=== PATIENT | female | born 1960 | race Caucasian/White ===

== ENCOUNTER → 2020-10-11 09:18 | Outpatient (BNVA) | payer BC, SELFPAY | PROVIDERS: PCP Internal Medicine; Visit Provider Obstetrics & Gynecology ==

== ENCOUNTER 2021-02-09 11:38 | Outpatient (REF) | payer BC, SELFPAY ==
--- NOTE | ~2021-02-09 | MM_ITS ---
EXAMINATION: MM SCREENING DIGITAL BREAST TOMOSYNTHESIS, BILATERAL CLINICAL INFORMATION: Screening. Asymptomatic. The lifetime risk of breast cancer based on the Tyrer-Cuzick Model is 8%. COMPARISON: Mammography: 11/26/2019, 08/16/2018, 08/09/2017 TECHNIQUE: Digital breast tomosynthesis is performed in both the craniocaudal and mediolateral oblique views along with computer-aided detection (CAD). Synthesized 2D images are generated from the tomosynthesis. FINDINGS: There are scattered areas of fibroglandular density (ACR BI-RADS breast composition Category b). There are no significant masses, abnormal calcifications, or other abnormalities. Parenchymal pattern is similar to prior exams. The axilla and skin contours are unremarkable. No significant changes. MM/MM tomosynthesis screening BI IMPRESSION: No mammographic evidence of malignancy. ASSESSMENT: BI-RADS 1: Negative RECOMMENDATION: Routine annual mammography screening. This patient's information was entered into a reminder system with a target due date for their next mammogram.
== END 2021-02-09 11:39 | disposition home or self-care (01) ==
LOC: HO.MAMMO 11:38
PROVIDERS: Visit Provider Internal Medicine
DX: Z12.31 Encounter for screening mammogram for malignant neoplasm of breast (principal)
CPT/HCPCS: 77063; 77067

== ENCOUNTER 2021-02-14 08:57 | Day surgery (SDC) | payer BC, SELFPAY ==
[2021-02-10 11:56] VITALS: BMI 23.8
--- NOTE | 2021-02-11 09:35 | P.CONAN_ITS ---
Documented by User: Esha Melendez NP 02/11/21 09:36 HPI - Anesthesia Eval Consult details Narrative: 61yo F for Colonoscopy PMFSH Active Problems Active Problems: All Active Problems (Updated 02/10/21 @ 11:55 by Awilda Tony RN) Well woman exam (Acute) Past Medical History Medical History Anxiety COVID-19 vaccine series completed Glaucoma Hypertension Family History Family History Father Lung cancer Mother Skin cancer Surgical History Surgical History H/O colonoscopy H/O shoulder surgery Hx of section Hx of dilation and curettage Social History Social History Patient Tobacco Use Status: Former Tobacco user Quit Date: 2010 Tobacco use type: Cigarette Use of substances other than those prescribed or required for medical reasons: Yes Substance Use Type Other:: uses a few times/week Have you been hit, kicked, punched, or otherwise hurt by someone within the past year? If so, by whom?: No Are you DNR?: No Advance Directives Information Provided: Yes (as above noted) Advance Directives on File: No Recently lost weight without trying: No Eating poorly because of decreased appetite: No Nutrition Risks: No Nutritional Risk Meds Allergies Allergy/AdvReac Type Severity Reaction Status Date / Time No Known Allergies Allergy Verified 10/11/20 09:46 [No Known Allergies*] Home Medications Medication Instructions Recorded Confirmed Last Taken Type amlodipine 5 mg tablet 5 mg PO DAILY 10/11/20 02/10/21 Unknown History lorazepam 1 mg tablet 1 mg PO BEDTIME PRN 10/11/20 02/10/21 Unknown History valsartan 80 mg tablet 240 mg PO DAILY 10/11/20 02/10/21 Unknown History Exam Exam Date and Time: February 11, 202135 Height,Weight and Vital Signs: Height 5 ft 4.5 in Weight 63.957 kg Assessment and Plan Assessment Anesthesia Assessment: Chart Reviewed Documented by User: Kim Ritter MD 02/14/21 09:27 [facility] Past Medical History Medical History Anxiety COVID-19 vaccine series completed Glaucoma Hypertension Family History Family History Father Lung cancer Mother Skin cancer Family history of problems with anesthesia: No Surgical History Surgical History H/O colonoscopy H/O shoulder surgery Hx of section Hx of dilation and curettage History of Problems with Anesthesia: No Social History Social History Patient Tobacco Use Status: Former Tobacco user Quit Date: 2010 Tobacco use type: Cigarette Use of substances other than those prescribed or required for medical reasons: Yes Substance Use Type Other:: uses a few times/week Have you been hit, kicked, punched, or otherwise hurt by someone within the past year? If so, by whom?: No Are you DNR?: No Advance Directives Information Provided: Yes (as above noted) Advance Directives on File: No Recently lost weight without trying: No Eating poorly because of decreased appetite: No Nutrition Risks: No Nutritional Risk Meds Allergies Allergy/AdvReac Type Severity Reaction Status Date / Time No Known Allergies Allergy Verified 10/11/20 09:46 [No Known Allergies*] Home Medications Medication Instructions Recorded Confirmed Last Taken Type amlodipine 5 mg tablet 5 mg PO DAILY 10/11/20 02/10/21 Unknown History lorazepam 1 mg tablet 1 mg PO BEDTIME PRN 10/11/20 02/10/21 Unknown History valsartan 80 mg tablet 240 mg PO DAILY 10/11/20 02/10/21 Unknown History Exam Airway Mallampati Class: II TM Dist: >3cm Assessment and Plan Assessment Anesthesia Assessment: Anesthesia Plan Discussed Final Anesthetic Review Family History of Problems with Anesthesia: No History of Problems with Anesthesia: No NPO: Yes ASA Class: II Final Preanesthetic Review: No Changes in Pt Med Stat, Meds/Allgs Chart Reviewed, Consent Obtained/Reviewed and Anes Risks/Benef Reviewed Patient Risk: Low Procedure Risk: Low Assessment/Block/Sedation in SS: Assess/Block/Sedation-SS Anesthetic Plan Anesthetic Plan: MAC: Disposition: Standard PACU
[2021-02-14 09:49] VITALS: BP 146/73; PULSE 70; RESP 16; TEMP 36.5; O2SAT 98
[2021-02-14] MEDS: Lactated Ringers 1,000 ML 100 ML IVCONT (09:56)
[2021-02-14 11:04] VITALS: BP 117/54; PULSE 72; RESP 16; TEMP 36.1; O2SAT 97
--- NOTE | 2021-02-14 11:07 | P.BOP_ITS ---
Brief Operative Note Date of Service: 02/14/21 Pre-op diagnosis: Screening Post-op diagnosis: other (Colon polyps) Procedure: Colonoscopy to the cecum and TI with biopsy and removal of polyps Surgeon: Eagle Perez Anesthesia: MAC Was an Chief Nurse Anesthetist used for this Procedure?: No Estimated blood loss (mL): 3.0 Pathology: other (A. Cecal polyps) Condition: stable Disposition: PACU
[2021-02-14 11:23] VITALS: BP 109/61; PULSE 62; RESP 18; O2SAT 96
--- NOTE | 2021-02-14 19:06 | OP_ITS ---
SURGEON: Eagle Perez MD INDICATIONS: The patient presents for evaluation of colorectal cancer screening. Full consent has been obtained from her for this, including risks of bleeding and perforation. PREOPERATIVE DIAGNOSIS: POSTOPERATIVE DIAGNOSIS: PROCEDURE PERFORMED: Colonoscopy to cecum and terminal ileum with biopsy and removal of polyps. ESTIMATED BLOOD LOSS: COMPLICATIONS: ANESTHESIA: Monitored anesthesia care. ASSISTANTS: SPECIMENS: PREOPERATIVE DIAGNOSES: Colorectal cancer screening and personal history of tubular adenoma of the colon. POSTOPERATIVE DIAGNOSES: Colorectal cancer screening and personal history of tubular adenoma of the colon, small colon polyps, diverticulosis, and internal hemorrhoids. DESCRIPTION OF PROCEDURE: The patient was placed in the left lateral decubitus position. The digital rectal exam revealed no abnormalities. The Olympus video pediatric colonoscope was entered into the rectum and advanced easily to the cecum. Once in the cecum, I did identify cecal pouch with appendiceal orifice and a normal-appearing ileocecal valve. The terminal ileum was cannulated and appeared normal. The scope was withdrawn back in the colon. The entire cecum was well visualized. In the cecum, were 2 flat less than 5 mm polyps, which were each biopsied and completely removed with cold biopsy forceps. The remainder of the cecum appeared normal. The scope was then slowly withdrawn assessing all mucosal surfaces carefully. Preparation was excellent. I did not visualize any other polyps, colitis, nor angiodysplasia. There was a mild amount of diverticulosis in the ascending colon and a moderate amount of diverticulosis in the sigmoid and descending colon. I did not visualize any sign of colitis nor angiodysplasias. In the rectum, scope was retroflexed visualizing internal hemorrhoids, but no other pathology. The rectal mucosa appeared normal. The scope was straightened out and withdrawn from the patient. She tolerated the procedure well and was returned to the recovery area in stable condition. IMPRESSION: 1. Small colon polyps, status post biopsy and removal. 2. Diverticulosis. 3. Internal hemorrhoids. PLAN: The results of the biopsy will be checked. I would recommend a repeat colonoscopy in 5 years for further screening. She will otherwise see me on a p.r.n. basis. MD MAGED Thomas/ALYSSAL / [id number]
== END 2021-02-14 12:05 | disposition home or self-care (01) ==
PROVIDERS: PCP Internal Medicine; Visit Provider Internal Medicine
PROC: 0DJD8ZZ Inspection of Lower Intestinal Tract, Via Natural or Artificial Opening Endoscopic (ICD-10-PCS; CPT 45378; principal; 2021-02-14 10:00)
DX: Z12.11 Encounter for screening for malignant neoplasm of colon (principal); Z86.010 Personal history of colon polyps; Z83.71 Family history of colonic polyps; D12.0 Benign neoplasm of cecum; K57.30 Diverticulosis of large intestine without perforation or abscess without bleeding; K64.8 Other hemorrhoids; K59.00 Constipation, unspecified; D18.03 Hemangioma of intra-abdominal structures; I10 Essential (primary) hypertension; R79.89 Other specified abnormal findings of blood chemistry; Z87.891 Personal history of nicotine dependence
CPT/HCPCS: 45380; 88305

== ENCOUNTER 2021-11-24 11:22 | Outpatient (REF) | payer BC, SELFPAY ==
[2021-11-30 22:56] LABS: HPV mRNA E6/E7 rflx Not Detected (Not Detected)
== END 2021-11-24 11:23 | disposition home or self-care (01) ==
LOC: HO.LAB 11:22
PROVIDERS: Visit Provider Obstetrics & Gynecology
DX: Z01.419 Encounter for gynecological examination (general) (routine) without abnormal findings (principal); Z11.51 Encounter for screening for human papillomavirus (HPV)
CPT/HCPCS: 87624; 88142

== ENCOUNTER 2022-02-10 11:58 | Outpatient (REF) | payer BC, SELFPAY ==
--- NOTE | ~2022-02-10 | MM_ITS ---
EXAMINATION: MM SCREENING DIGITAL BREAST TOMOSYNTHESIS, BILATERAL CLINICAL INFORMATION: Screening. Asymptomatic. The lifetime risk of breast cancer based on the Tyrer-Cuzick Model is 8%. COMPARISON: Mammography: 02/09/2021, 11/26/2019, 08/16/2018 TECHNIQUE: Digital breast tomosynthesis is performed in both the craniocaudal and mediolateral oblique views along with computer-aided detection (CAD). Synthesized 2D images are generated from the tomosynthesis. FINDINGS: There are scattered areas of fibroglandular density (ACR BI-RADS breast composition Category b). There are no significant masses, abnormal calcifications, or other abnormalities. Parenchymal pattern is similar to prior studies. There is no developing density or architectural abnormality. The axilla and skin contours are unremarkable. No significant changes. MM/MM tomosynthesis screening BI IMPRESSION: No mammographic evidence of malignancy. ASSESSMENT: BI-RADS 1: Negative RECOMMENDATION: Routine annual mammography screening. This patient's information was entered into a reminder system with a target due date for their next mammogram.
== END 2022-02-10 11:59 | disposition home or self-care (01) ==
LOC: HO.MAMMO 11:58
PROVIDERS: PCP Internal Medicine; Visit Provider Internal Medicine
DX: Z12.31 Encounter for screening mammogram for malignant neoplasm of breast (principal)
CPT/HCPCS: 77063; 77067

== ENCOUNTER → 2022-11-27 09:59 | Outpatient (BNVA) | payer BC, SELFPAY | PROVIDERS: PCP Internal Medicine; Visit Provider Obstetrics & Gynecology ==

== ENCOUNTER 2023-02-14 10:22 | Outpatient (REF) | payer BC, SELFPAY | END 2023-02-14 10:23 | disposition home or self-care (01) | LOC: HO.MAMMO 10:22 | PROVIDERS: PCP Internal Medicine; Referring Provider Obstetrics & Gynecology; Visit Provider Internal Medicine | DX: Z12.31 Encounter for screening mammogram for malignant neoplasm of breast (principal) | CPT/HCPCS: 77063; 77067 ==

== ENCOUNTER → 2023-02-14 10:30 | Outpatient (BNV) | payer BC, SELFPAY | PROVIDERS: PCP Internal Medicine; Referring Provider Obstetrics & Gynecology; Visit Provider Radiology Diagnostic Radiology | DX: Z12.31 Encounter for screening mammogram for malignant neoplasm of breast (principal) | CPT/HCPCS: 77063; 77067 ==

== ENCOUNTER 2024-03-10 14:58 | Outpatient (REF) | payer BC, SELFPAY ==
--- NOTE | ~2024-03-10 | MM_ITS ---
EXAMINATION: MM SCREENING DIGITAL BREAST TOMOSYNTHESIS, BILATERAL CLINICAL INFORMATION: Screening. Asymptomatic. COMPARISON: Mammography: Comparison is made with available priors TECHNIQUE: Digital breast mammography with tomosynthesis is performed in both the craniocaudal and mediolateral oblique views along with computer-aided detection (CAD). FINDINGS: There are scattered areas of fibroglandular density (ACR BI-RADS breast composition Category b). There are no significant masses, abnormal calcifications, or other abnormalities. MM/MM tomosynthesis screening BI IMPRESSION: No mammographic evidence of malignancy. ASSESSMENT: BI-RADS BI-RADS 1 - Negative RECOMMENDATION: Routine annual mammography screening. 1 year F/U This examination should not preclude the clinical evaluation of a suspicious palpable abnormality. This patient's information was entered into a reminder system with a target due date for their next mammogram. Electronically signed by: Anna Jones DO 03/21/2024 04:45 PM EDT
== END 2024-03-10 14:59 | disposition home or self-care (01) ==
LOC: HO.MAMMO 14:58
PROVIDERS: PCP Internal Medicine; Visit Provider Internal Medicine
DX: Z12.31 Encounter for screening mammogram for malignant neoplasm of breast (principal)
CPT/HCPCS: 77063; 77067

== ENCOUNTER → 2024-03-10 15:15 | Outpatient (BNV) | payer BC, SELFPAY | PROVIDERS: PCP Internal Medicine; Visit Provider Internal Medicine | DX: Z12.31 Encounter for screening mammogram for malignant neoplasm of breast (principal) | CPT/HCPCS: 77063; 77067 ==

== ENCOUNTER 2025-03-30 12:52 | Outpatient (REF) | payer MEDICARE, SELFPAY ==
--- OUTSIDE RECORDS SUMMARY | 2025-03-30 16:20 | XMS_ITS | Encounter Summary ---
Author Organization [facility] Address [address] [facility] [address] [place] [address] Phone Care Team Providers Care Sample Clerk Name Role Phone Hiro Aquino MD Primary Care Provider [phone] Hiro Aquino MD Unavailable [phone] Hiro Aquino MD Unavailable [phone] Eagle Perez MD Unavailable [phone] Edmar Simms MD Unavailable [phone] Encounter Details Date Type Department Care Team (Late st Contact Info) Description 05/24/2022 Transcribe Orders [facility] Specimen Processing [address] [place] [address] Hiro Aquino MD [address] [place] [address] [email or web address] Social History Tobacco Use Types Packs/Day Years Used Date Smoking Tobacco: Former Cigarettes 1 40 1 977 - 2016 Smokeless Tobacco: Never Alcohol Use Standard Drinks/Week Comments Yes 10 (1 standard drink = 0.6 oz pure alcohol) 1-2 glasses daily, more on weekends Child or Family Care Answer Date Record ed Do you have problems with on e of the following making it difficult for you to work, study, or receive health care? No 06/07/2021 Education Answer Date Recorded Are you interested in help w ith more adult education (for example, completing high school, GED, job training, learning the Swedish language, technical skills, or developing parenting skills)? No 06/07/2021 Are you concerned about learning? Not on file 06/07/2021 Not on file 06/07/2021 Not on file 06/07/2021 Food Answer Date Recorded Within the past 6 months we worried whether our food would run out before we got money to buy more. Never True 06/07/2021 Within the past 6 months the food we bought just didn't last and we didn't have enough money to get more. Never True Paying for Meds Answer Date Recorded Do you have trouble paying for medicines? No 06/07/2021 Paying Utility Bills Answer Date Record ed Do you have trouble paying your heating or elect ricity bill? No 06/07/2021 Transportation Answer Date Recorded Has the lack of transportati on kept you from medical appointments or from getting medications? No 06/07/2021 Comments No Sex and Gender Information Value Date Recorded Sex Assigned at Not on file Legal Sex Female 10:34 PM EDT Gender Identity Not on file Sexual Orientation Not on file documented as of this encounter Plan of Treatment Upcoming Encounters Date Type Department Care Team (Late st Contact Info) Description 05/29/2025 1:00 PM EST Office Visit [facility] Internal Medicine [address] [place] [address] Hiro Aquino MD [address] [place] [address] documented as of this encounter Visit Diagnoses Not on filedocumented in this encounter Additional Health Concerns Assessment Noted Time PHQ-2 Depression Total Score: 0 06/07/19 22 11:03 AM EST documented as of this encounter Care Teams Sample Clerk Relationship Specialty Start Date End Date Hiro Aquino MD [address] [place] [address] PCP - General 03/22/17 Hiro Aquino MD [address] [place] [address] [email or web address] Historical LMR Provider 03/24/17 Hiro Aquino MD [address] [place] [address] [email or web address] Insurance Assigned Provider 09/08/23 03/14/25 Eagle Perez MD [address] [place] [address] Gastroenterology 02/20/20 Edmar Simms MD [address] [place] [address] [address] [place] [address] [email or web address] Hand Surgery 02/20/20 documented as of this encounter Additional Source Comments The information contained in this document represents components of the legal health record. It is not the complete legal health record.[facility]
--- OUTSIDE RECORDS SUMMARY | 2025-03-30 16:20 | XMS_ITS | Encounter Summary ---
Author Organization [facility] Address [address] [facility] [address] [place] [address] Phone Care Team Providers Care Frameman Name Role Phone Hiro Aqunio MD Primary Care Provider [phone] Hiro Aquino MD Unavailable [phone] Hiro Aquino MD Unavailable [phone] Eagle Perez MD Unavailable [phone] Edmar Simms MD Unavailable [phone] Reason for Visit * Reason Onset Date Comments Medication Question 03/02/2022 Encounter Details Date Type Department Care Team (Late st Contact Info) Description 03/02/2022 Telephone [facility] Internal Medicine [address] [place], [place] [id number] Hiro Aquino MD [address] [place] [address] [email or web address] Medication Question Social History Tobacco Use Types Packs/Day Years [...] high school, GED, job training, learning the [place]ic language, technical skills, or developing parenting skills)? [...] on file documented as of this encounter Progress Notes * Ariana Antonio RN - 03/07/2022 11:04 AM EDT Spoke to Yelena about below. She understands. To Dr. Aquino: Labs pended for review and signature. * Velvet Rodriguez NP - 03/02/2022 9:23 PM EDT Start Atorvastatin 20 mg daily taken in evening or at bedtime. Report any unexplained muscle pain or weakness. Recheck Lipids, AST, ALT in 2 months (fasting) * Radha Rodriguez - 03/02/2022 8:51 AM EDT Pt called to say she received a call last week from nurse that her cholesterol was high and PCP wasgoing to order meds at [facility] in [place]. Not sure name of med but thought it was ??Astatin --- medication is not at the pharmacy. Please call to advise. documented in this encounter Plan of Treatment Upcoming Encounters Date Type Department Care Team ([facility] st Contact Info) Description 05/29/2025 1:00 PM EST Office Visit [facility] Internal Medicine [address] [place] [address] Hiro Aquino MD [address] [place] [address] [email or web address] documented as of this encounter Visit Diagnoses Diagnosis Pure hypercholesterolemia documented in this encounter Additional Health Concerns Assessment Noted Time PHQ-2 Depression Total Score: 0 06/07/19 22 11:03 AM EST documented as of this encounter Care Teams Frameman Relationship Specialty Start Date End Date Hiro Aquino MD [address] [place] [address] PCP - General 03/22/17 Hiro Aquino MD [address] [place] [address] Historical LMR Provider 03/24/17 Hiro Aquino MD [address] [place] [address] Insurance Assigned Provider 09/08/23 03/14/25 Eagle Perez MD [address] [place] [address] Gastroenterology 02/20/20 Edmar Simms MD [address] [place] [address] [place] [address] [email or web address] Hand Surgery 02/20/20 documented as of this encounter Additional Source Comments The information contained in this document represents components of the legal health record. It is not the complete legal health record.[facility]
--- OUTSIDE RECORDS SUMMARY | 2025-03-30 16:20 | XMS_ITS | Data Portability ---
Author Organization [place] - [facility], [facility]- Address [address] [place] [address] Assessment Encounter Date Assessment Date Assessment LastModified by Organization Details LastModified Time 04/24/2023 04/24/2023 The clinical presentation is consistent with right hip arthritis [email or web address] Not available 04/24/2023 15:56:56 04/30/2023 04/30/2023 Decision to proceed with right primary hip replacement surgery [email or web address] Not available 04/30/2023 13:32:00 06/05/2023 06/05/2023 This patient presents for follow up 4 weeks after right hip replacement [email or web address] Not available 06/05/2023 13:40:55 Plan of Treatment Reminders Order Date Submit Date Provider Last Modified By Organization Details Last Modified Time Details Appointments None recorded. Lab None recorded. Referral physical therapist referral 2023 024 [email or web address] [employer], [address] [facility], [place], [address], 08:50:29 Procedures None recorded. Surgeries None recorded. Imaging XR, hip + pelvis, unilateral, 2 or 3 view 2023 024 [email or web address] In-Office Order, Internal Use Only DO Not Attach Compendium DO Not Attach Compendium, Do Not Delete/merge, [id number] 13:41:25 XR, hip + pelvis, unilateral, 2 or 3 view 2022 023 [email or web address] In-Office Order, Internal Use Only DO Not Attach Compendium DO Not Attach Compendium, Do Not Delete/merge, [id number] 15:57:50 Medication Orders amoxicillin 500 mg capsule 2023 024 [facility], [address] [place], [address], 4 13:41:31 Adult Low Dose Aspirin 81 mg tablet,supa yed release 2022 023 [facility], [address] [place], [address], 3 13:37:51 celecoxib 200 mg capsule 2022 023 [facility], [address] [place], [address], 3 13:37:47 acetaminoph en 500 mg tablet 2022 023 [facility], [address] [place], [address], 3 13:37:47 oxycodone 5 mg tablet 2022 023 [facility], [address] [place], [address], 3 13:37:53 sennosides 8.6 mg-docusate sodium 50 mg tablet 2022 023 [facility], [address] [place], [address], 3 13:37:49 omeprazole 20 mg capsule,del ayed release 2022 023 [facility], [address] [place], [address], 3 13:37:50 Hibiclens 4 % topical liquid 2022 023 [facility], [address] [place], [address], 13:37:51 Patient TargetsNo targets recorded. Patient Instructions Encounter Date Encounter Id Patient Instructions Last Modified By Organization Details Last Modified Time 04/24/2023 [id number] I have offered r ight hip replacement surgery. We discussed the nature of the operation and recovery process. She is aware the risks including but not limited to bleeding infection dislocation blood clots and nerve injury. Her can help her with her recovery process. We discussed inpatient versus outpatient surgery and she is a candidate for outpatient surgery. All of her questions were answered and follow-up in the office we based on her decision to proceed. [email or web address] Not available 04/24/2023 15:58:48 04/30/2023 [id number] Right primary to evgeny hip arthroplasty has been offered. We have discussed both operative and non-operative management. The usual post-op risks of total hip arthroplasty have been reviewed, including but not limited to bleeding, infection, dislocation, blood clots, sciatic nerve injury and leg length discrepancy. She demonstrates and verbalizes understanding of these risks and agreement with the plan. All of her questions have been addressed regarding the details of the surgery, the recovery process and the anticipated discharge plans. Based on assessment of risk factors, postoperative thromboprophylaxis will be accomplished with aspirin 81mg twice a day. Pre-operative notes and recommendations from the primary care physician will be reviewed when they become available. Labwork will be obtained for pre-testing and evaluated. She has no sabianist or personal objection to transfusion of blood products, and the small risk of transmission of disease from the blood has been discussed. Based on the patient's medical history, tranexamic acid may be used safely to reduce blood loss. We have reviewed the plan for spinal anesthesia and benefits of spinal as opposed to general anesthesia. The post-operative pain control regimen has been reviewed. The utility of Celebrex for pain control and reduction of heterotopic bone formation has been reviewed, and we have emphasized the importance of using a proton pump inhibitor concurrently. Other standard post-op pain control measures will likely be sufficient and safe. We will proceed with surgical intervention as scheduled. This real time, interactive virtual telehealth encounter was done by phone with the patient's verbal consent. Two patient identifiers were used and confirmed. Physical location of the patient was: home. Patient resides in: [place] Physical location of the provider: office Other participant's involvement(bilingual speech language pathologist, etc): No [email or web address] Not available 04/30/2023 13:40:33 06/05/2023 [id number] Chemical thromboprophylaxis will discontinue. Dislocation precautions will be discontinued. A dental prophylaxis antibiotic script has been given but elective dental work is discouraged until 12 weeks post-op. A physical therapy referral has been provided. She will followup in one year for another checkup. We have discussed positions to avoid to reduce the likelihood of hip instability. [email or web address] Not available 06/05/2023 13:41:32 Reason for Referral Physical Therapist Referral for History of total hip arthroplasty Referring Physician: Angel Pinto, Orthopedic Surgery, Encounter Date: 06/05/2023 Results Created Date Observation Date Name Description Value Unit Range Abnormal Flag Note LastModifiedBy Organization Detail LastModifiedTime 04/24/20 23 XR, hip + pelvi s, unila teral , 2 or 3 view No observ ation record ed. [email or web address] In-Office Order Internal Use Only DO Not Attach Compendium DO Not Attach Compendium, Do Not Delete/merge, [id number] 04/24/2023 15:57:49 06/05/19 24 XR, hip + pelvi s, unila teral , 2 or 3 view No observ ation record ed. [email or web address] In-Office Order Internal Use Only DO Not Attach Compendium DO Not Attach Compendium, Do Not Delete/merge, [id number] 06/05/2023 13:41:22 11/15/19 24 11/09/2023 XR, hip, unila teral No observ ation record ed. [email or web address] [facility] [address] [place] [address], [place], [address], 11/16/2023 07:48:18 Result Notes None recorded. Problems Name Problem SNOMED Code Status Onset Date Resolution Date Notes Provider Name and Address Organization Details Recorded Time Osteoarthri tis of right hip joint 5355306707211 07 Active 2022 Angel Pinto MD [address] [place], [place] [address], [id number], [facility] - [facility] 3 15:57:05 Notes:R HIP ~2018 Problem Notes None recorded. Medical Equipment None Reported. Allergies No known drug allergies Medications Name Sig Start Date Stop Date Status Note LastModified by Organization Details LastModified Time celecoxib 200 mg capsule TAKE ONE CAPSULE BY MOUTH EVERY DAY active Not Available Not Available No t Available amoxicillin 500 mg capsule TAKE 4 CAPSULES BY MOUTH 1 HOUR BEFORE DENTAL WORK. active Not Available Not Available No t Available budesonide 32 mcg/actuation nasal spray USE 1 SPRAY BY NASAL ROUTE DAILY. active Not Available Not Available No t Available atorvastatin 20 mg tablet TAKE 1 TABLET BY MOUTH EVERY DAY active Not Available Not Available No t Available azithromycin 250 mg tablet TAKE TWO TABLETS BY MOUTH ONE DOSE ON THE FIRST DAY, THEN TAKE ONE TABLET DAILY THEREAFTE R. active Not Available Not Available No t Available meloxicam 15 mg tablet TAKE ONE TABLET BY MOUTH EVERY DAY WITH FOOD active Not Available Not Available No t Available valsartan 80 mg tablet TAKE TWO TABLETS 160MG) BY MOUTH EVERY DAY active Not Available Not Available No t Available amlodipine 5 mg tablet TAKE 1 TABLET BY MOUTH EVERY DAY active Not Available Not Available No t Available aspirin 81 mg tablet,delayed release TAKE ONE TABLET BY MOUTH TWICE A DAY FOR 30 DAYS. active Not Available Not Available No t Available acetaminophen 500 mg tablet TAKE TWO TABLETS BY MOUTH EVERY 8 HOURS active Not Available Not Available No t Available oxycodone-acet aminophen 5 mg-325 mg tablet TAKE ONE TABLET BY MOUTH EVERY 4 TO 6 HOURS NEEDED FOR PAIN active Not Available Not Available No t Available Betasept Surgical Scrub 4 % topical liquid SHOWER THE NIGHT BEFORE & THE MORNING OF SURGERY. active Not Available Not Available No t Available erythromycin 5 mg/gram (0.5 %) eye ointment APPLY TO UPPER LIDS TO BOTH EYES THREE TIMES A DAY active Not Available Not Available No t Available omeprazole 20 mg capsule,delaye d release TAKE ONE CAPSULE BY MOUTH EVERY DAY FOR 30 DAYS. active Not Available Not Available No t Available lorazepam 1 mg tablet TAKE 1 TABLET BY MOUTH NIGHTLY AT BEDTIME NEEDED. active Not Available Not Available No t Available oxycodone 5 mg tablet TAKE 1 OR 2 TABLETS BY MOUTH EVERY 6 HOURS NEEDED FOR PAIN. active Not Available Not Available No t Available Botox 100 unit injection active Not Available Not Available No t Available valsartan 160 mg tablet TAKE 1 TABLET BY MOUTH EVERY DAY active Not Available Not Available No t Available Stimulant Laxative Plus 8.6 mg-50 mg tablet TAKE TWO TABLETS BY MOUTH EVERY DAY active Not Available Not Available No t Available Vitals Date Recorded Body height Body mass index (BMI) Body weight Provider Name and Address Organization Details Last Updated DateTime 06/05/2023 162.56 cm 25.4 kg/m2 15420.67 g nadiya cueto [facility] 06/05/2023 13:10:16 Date Recorded Body height Body mass index (BMI) Body weight Provider Name and Address Organization Details Last Updated DateTime 04/24/2023 162.56 cm 25.4 kg/m2 85949.67 g Hanane Saeed [facility] 04/24/2023 14:03:26 Date Recorded Body height Body mass index (BMI) Body weight Provider Name and Address Organization Details Last Updated DateTime 04/24/2023 162.56 cm 24.9 kg/m2 20899.89 g KHADIJAH GASTELUM [facility] 04/24/2023 13:56:57 Date Recorded Body height Body mass index (BMI) Body weight Provider Name and Address Organization Details Last Updated DateTime 04/30/2023 162.56 cm 25.4 kg/m2 23872.67 g KHADIJAH GASTELUM [facility] 04/30/2023 07:40:50 Social History Question Answer Notes LastModified by [facility] Details LastModified Time Tobacco Smoking Status Former Smoker KHADIJAH cornejo [facility] 04/24/2023 13:57:57 Which Of Your Hands Is Dominant? Right Information not available 04/24/2023 What Was The Date Of Your Most Recent Tobacco Screening? 04/30/2023 Information not available 04/30/2023 How Many Years Have You Smoked Tobacco? 30 Information not available 04/24/2023 Sex: Unknown Functional Status Question Answer Note LastModified by Organizat ion Details LastModified Time Do you use any illicit or recreational drugs? No Information not available 04/24/2023 Do you or have you ever used any other forms of tobacco or nicotine? No Information not available 04/24/2023 What is your level of alcohol consumption? Moderate Information not available 04/24/2023 Mental Status None recorded. Family History Relationship Description Onset Age of this Age Resolved Age Notes LastModified by Organization Details LastModified Time Unspecified Relation Malignant neoplastic disease Not available 04/05 13:57:06 Unspecified Relation Heart disease Not available 04/05 13:57:11 Unspecified Relation Hypertensive disorder Not available 04/05 13:57:15 Unspecified Relation Osteoarthrit is Not available 04/05 13:57:23 Medical History Condition Response Arthritis Y Gynecological HistoryNo gynecological history recorded. Obstetrics History GPAL:G 0 P 0 0 0 0 Past Encounters Encounter ID Performer Location Encounter Start Date Encounter Closed Date Diagnosis/Indication Diagnosis SNOMED-CT Code Diagnosis ICD10 Code Diagnosis IMO Codes Diagnosis Note [id number] MD JACQUELINE Rooney [address] [place] [address] 04/24/2023 13:28:08 04/24/2023 14:37:00 Osteoarthritis of right hip joint 1069920102 35960 M16.11 [id number] Angel Pinto MD [facility] [address] [place] [address] 04/30/2023 07:40:13 04/30/2023 13:41:37 Osteoarthritis of right hip joint 9493566058 71400 M16.11 [id number] [facility] [address] [place] [address] 06/05/2023 13:06:54 06/05/2023 13:40:12 History of total hip arthroplasty 3880657642 06 Z96.641 Health Concerns Section Related Observation LastModified by Organization Detai ls LastModified Time None Recorded Concern Status LastModified by Organization Details LastModified Time None Recorded Advance Directives Directive None Recorded Payers Insurance Date Sequence Insurance Name Policy Number Policy Dominguez Covered Member ID Dominguez Member ID Guarantor Name 06/05/2023 1 [facility] [id number] Yelena Ramirez [id number] Yelena Ramirez Notes Date Note Type Note Provider Name and Address Organization Details Recorded Time 04/24/2023 text/html Hip DJPReported by Patient 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 She lives outside of [facility]. She is otherwise healthy. She lives at home with her . She complains of groin pain and lateral thigh pain. She cannot walk more than neighborhood block before she has to stop. She is having difficulty with socks and shoes lifting her leg to get in and out of a car. Diagnosed with arthritis in an outlying orthopedic office. She has had a total of 3 intra-articular cortisone injections, the last of which did not help her. It was performed a little over 3 months ago. Agnel Pinto MD [address] [place], [address], [facility] 04/24/2023 15:59:00 04/30/2023 text/html Yelena Ramirez Presents in follow up today via telehealth for further discussion of right hip arthritis. She has been trying to manage symptoms conservatively but has elected to proceed with right hip replacement. Pertinent PMH includes: Pertinent social history includes: lives with her , works for [employer] MAURILIO HICKEY NP [address] [place], [address], [facility] 04/30/2023 13:41:18 06/05/2023 text/html Hip arthroplasty post-opReported by Patient 4 weeks after right hip replacement. Doing beautifully. Doing a home exercise program after home PT. Was not tolerant of most of her medications so has been off any meds for the past 2 weeks. Never took an oxycodone. Has been ambulating with weeks Angel Pinto MD [address] [place], [address], [facility] 06/05/2023 13:41:43 OBGyn Episode No OBEpisode recorded.
--- OUTSIDE RECORDS SUMMARY | 2025-03-30 16:20 | XMS_ITS | Encounter Summary ---
Author Organization Located Within [facility] Address [address] [facility] [address] [place] [address] Phone Care Team Providers Care Development Planner Name Role Phone Hiro Aquino MD Primary Care Provider [phone] Hiro Aquino MD Unavailable [phone] Hiro Aquino MD Unavailable [phone] Eagle Perez MD Unavailable [phone] Edmar Simms MD Unavailable [phone] Encounter Details Date Type Department Care Team (Late st Contact Info) Description 05/05/2024 Procedure Pass [facility], Ct Scan - [address] [address] Social History Tobacco Use Types Packs/Day Years [...] work, study, or receive health care? No 11/01/2023 Education Answer Date Recorded Are you interested in help w ith more adult education (for example, completing high school, GED, job training, learning the Azeri language, technical skills, or developing parenting skills)? No 11/01/2023 Are you concerned about learning? Not on file 11/01/2023 No 11/01/2023 Yes 11/01/2023 Food Answer Date Recorded Within the past 6 months we worried whether our food would run out before we got money to buy more. Never True 11/01/2023 Within the past 6 months the food we bought just didn't last and we didn't have enough money to get more. Never True Residential Stability Answer Date Recor ded What is your housing situation today? I have vern sing 11/01/2023 How many times have you move d in the past 12 months? Zero (I did not move) 11/01/2023 Paying for Meds Answer Date Recorded Do you have trouble paying for medicines? No 11/01/2023 Paying Utility Bills Answer Date Record ed Do you have trouble paying your heating or elect ricity bill? No 11/01/2023 Transportation Answer Date Recorded Has the lack of transportati on kept you from medical appointments or from getting medications? No 11/01/2023 Unemployment Answer Date Recorded Are you currently unemployed or working on a part-time or temporary basis, and looking for work? I choose not to answer 06/07/2022 Digital Access Answer Date Recorded No 11/01/2023 Yes 11/01/2023 Do you have reliable internet access at home? Ye s 11/01/2023 Do you have a device (e.g., phone, tablet, computer) with a working camera? Yes 11/01/2023 Intimate Partner Violence Answer Date R ecorded Denied Basic Needs Not on file 11/01/2023 In the past 12 months have y ou been in a relationship with a person who hurts, threatens, or tries to control you? No 11/01/2023 Worried food would run out Not on file 10/31 In the past 12 months have y ou been in a relationship with a person who hurts, threatens, or tries to control you? No 11/01/2023 Comments No Sex and Gender Information Value Date Recorded Sex Assigned at Not on file Legal Sex Female 10:34 PM EDT Gender Identity Not on file Sexual Orientation Not on file documented as of this encounter Plan of Treatment Upcoming Encounters Date Type Department Care Team (Late st Contact Info) Description 05/29/2025 1:00 PM EST Office Visit Oanh Fernandez [facility] Internal Medicine [address] [place] [address] Hiro Aquino MD [address] [place] [address] [email or web address] documented as of this encounter Visit Diagnoses Not on filedocumented in this encounter Additional Health Concerns Assessment Noted Time PHQ-2 Depression Total Score: 0 11/01/19 24 8:00 AM EDT documented as of this encounter Care Teams Development Planner Relationship Specialty Start Date End Date Hiro Aquino MD [address] [place] [address] [email or web address] PCP - General 03/22/17 Hiro Aquino MD [address] [place] [address] [email or web address] Historical LMR Provider 03/24/17 Hiro Aquino MD [address] [place] [address] [email or web address] Insurance Assigned Provider 09/08/23 03/14/25 Eagle Perez MD [address] [place] [address] Gastroenterology 02/20/20 Edmar Simms MD [address] [place] [address] [email or web address] Hand Surgery 02/20/20 documented as of this encounter Additional Source Comments The information contained in this document represents components of the legal health record. It is not the complete legal health record.Located Within [facility]
--- OUTSIDE RECORDS SUMMARY | 2025-03-30 16:20 | XMS_ITS | Clinical Summary ---
Author Organization [employer] Address [address] [facility] [address] [place] [address] Care Team Providers Care Pigment Pumper Name Role Phone Unavailable Primary Care Provider Unavailabl e Encounters Date Type Department Care Team Description 03/12/2025 11:15 AM EDT Immunization [facility] [address] [place] [address] Larissa Núñez RN Encounter for vaccination; Encounter for immunization from Last 3 Months Immunizations Immunization Administration Dates Next Due Influenza, High Dose Seasonal, Preservative Free 03/12/2025 Pfizer Covid-19 Vaccine 12+ 03/12/2025 Social History Tobacco Use Types Packs/Day Years Used Date Smoking Tobacco: Never Assessed Comments Unknown Sex and Gender Information Value Date Recorded Sex Assigned at Female 03/12/2025 3:04 PM EDT Legal Sex Female 3:02 PM EDT Gender Identity Female 03/12/2025 3:04 PM EDT Sexual Orientation Straight 03/12/2025 3: 04 PM EDT Plan of Treatment Health Maintenance Due Date Last Done Comments CT Colonography 1960 Colonoscopy 1960 Colorectal Cancer Screening 1960 Depression Screening 1960 FIT DNA/Cologuard 1960 FIT 1960 FOBT 1960 Lipid Panel 1960 SDOH Screening 1960 Sigmoidoscopy 1960 Alcohol/Substance Use Screening 1972 Tobacco Screening 1972 Hepatitis C Screening 12/31/1977 Pap Smear 12/31/1980 Cervical Cancer Screening 12/31/1989 HPV/Cotest 12/31/1989 Mammogram 2000 Pneumococcal Vaccine: 50+ Years (1 of 1 - PCV) 12/31/2009 Zoster Vaccines (2 of 2) 07/16/2020 05/21/2020 DTaP/Tdap/Td Vaccines (2 - Td or Tdap) 09/03/2023 09/02/2013, 05/05/2005 COVID-19 Vaccine ( season) 2025 03/12/2025, 09/26/2020, 08/27/2020 RSV Patients and Patients Aged 60 years or older (1 - 1-dose 75+ series) 12/31/2034 Influenza Vaccine Completed 03/12/2025, , 03/01/2023, Additional history exists HIB Vaccines Aged Out No longer eligi ble based on patient's age to complete this topic HPV Vaccines Aged Out No longer eligi ble based on patient's age to complete this topic Hepatitis A Vaccines Aged Out No long er eligible based on patient's age to complete this topic Hepatitis B Vaccines Aged Out No long er eligible based on patient's age to complete this topic IPV Vaccines Aged Out No longer eligi ble based on patient's age to complete this topic Meningococcal B Vaccine Aged Out No l onger eligible based on patient's age to complete this topic Meningococcal Vaccine Aged Out No adrián julius eligible based on patient's age to complete this topic RSV under 20 months Aged Out No longe r eligible based on patient's age to complete this topic Rotavirus Vaccines Aged Out No longer eligible based on patient's age to complete this topic Insurance MEDICARE
--- OUTSIDE RECORDS SUMMARY | 2025-03-30 16:20 | XMS_ITS | Encounter Summary ---
Author Organization [facility] Address [address] [facility] [address] [place] [address] Phone Care Team Providers Care Defense Travel Administrator Name Role Phone Hiro Aquino MD Primary Care Provider [phone] Hiro Aquino MD Unavailable [phone] Hiro Aquino MD Unavailable [phone] Eagle Perez MD Unavailable [phone] Edmar Simms MD Unavailable [phone] Encounter Details Date Type Department Care Team (Late st Contact Info) Description 11/03/2021 Procedure Pass [facility], Ct Scan - [address] [address] Social History Tobacco Use Types Packs/Day Years [...] high school, GED, job training, learning the Portuguese language, technical skills, or developing parenting skills)? [...] Description 05/29/2025 1:00 PM EST Office Visit [facility] Internal Medicine [address] [place], [place] [address] Hiro Aquino MD [address] [place], [place] [id number] documented as of this encounter Visit Diagnoses Not on filedocumented in this encounter Additional Health Concerns Assessment Noted Time PHQ-2 Depression Total Score: 0 06/07/19 22 11:03 AM EST documented as of this encounter Care Teams Defense Travel Administrator Relationship Specialty Start Date End Date Hiro Aquino MD [address] [place] [address] PCP - General 03/22/17 Hiro Aquino MD [address] [place] [address] Historical LMR Provider 03/24/17 Hiro Aquino MD [address] [place] [address] [email or web address] Insurance Assigned Provider 09/08/23 03/14/25 Eagle Perez MD [address] [place] [address] Gastroenterology 02/20/20 Edmar Simms MD [address] [place] [address] [email or web address] Hand Surgery 02/20/20 documented as of this encounter Additional Source Comments The information contained in this document represents components of the legal health record. It is not the complete legal health record.[facility]
--- OUTSIDE RECORDS SUMMARY | 2025-03-30 16:20 | XMS_ITS | Encounter Summary ---
Author Organization [facility] Address [address] [facility] [address] [place] [address] Phone Care Team Providers Care Surveyor Chain Helper Name Role Phone Hiro Auqino MD Primary Care Provider [phone] Hiro Aquino MD Unavailable [phone] Hiro Aquino MD Unavailable [phone] Eagle Perez MD Unavailable [phone] Edmar Simms MD Unavailable [phone] Encounter Details Date Type Department Care Team (Late st Contact Info) Description 10/27/2022 Procedure Pass [facility], Ct Scan - [address] [address] Social History Tobacco Use Types Packs/Day Years [...] work, study, or receive health care? No 10/20/2022 Education Answer Date Recorded Are you interested in help w ith more adult education (for example, completing high school, GED, job training, learning the Ukrainian language, technical skills, or developing parenting skills)? No 10/20/2022 Are you concerned about learning? Not on file 10/20/2022 No 10/20/2022 Yes 10/20/2022 Food Answer Date Recorded Within the past 6 months we worried whether our food would run out before we got money to buy more. I choose not to answer 10/20/2022 Within the past 6 months the food we bought just didn't last and we didn't have enough money to get more. I choose not to answer 10/20/2022 Residential Stability Answer Date Recor ded What is your housing situation today? I have vern sing 10/20/2022 How many times have you move d in the past 12 months? Zero (I did not move) 10/20/2022 Paying for Meds Answer Date Recorded Do you have trouble paying for medicines? No 10/20/2022 Paying Utility Bills Answer Date Record ed Do you have trouble paying y our heating or electricity bill? I choose not to answer 10/20/2022 Transportation Answer Date Recorded Has the lack of transportati on kept you from medical appointments or from getting medications? No 10/20/2022 Unemployment Answer Date Recorded Are you currently unemployed or working on a part-time or temporary basis, and looking for work? I choose not to answer 06/07/2022 Digital Access Answer Date Recorded No 10/20/2022 Yes 10/20/2022 Do you have reliable internet access at home? Ye s 10/20/2022 Do you have a device (e.g., phone, tablet, computer) with a working camera? Yes 10/20/2022 Comments No Sex and Gender Information Value Date Recorded Sex Assigned at Not on file Legal Sex Female 10:34 PM EDT Gender Identity Not on file Sexual Orientation Not on file documented as of this encounter Plan of Treatment Upcoming Encounters Date Type Department Care Team (Late st Contact Info) Description 05/29/2025 1:00 PM EST Office Visit [facility] Internal Medicine [address] [place] [address] Hiro Aquino MD [address] [place] [address] documented as of this encounter Visit Diagnoses Not on filedocumented in this encounter Additional Health Concerns Assessment Noted Time PHQ-2 Depression Total Score: 0 10/21/19 23 2:39 PM EDT documented as of this encounter Care Teams Surveyor Chain Helper Relationship Specialty Start Date End Date Hiro Aquino MD [address] [place] [address] PCP - General 03/22/17 Hiro Aquino MD [address] [place] [address] Historical LMR Provider 03/24/17 Hiro Aquino MD [address] [place] [address] Insurance Assigned Provider 09/08/23 03/14/25 Eagle Perez MD [address] [place] [address] Gastroenterology 02/20/20 Edmar Simms MD [address] [place] [address] [email or web address] Hand Surgery 02/20/20 documented as of this encounter Additional Source Comments The information contained in this document represents components of the legal health record. It is not the complete legal health record.[facility]
--- OUTSIDE RECORDS SUMMARY | 2025-03-30 16:20 | XMS_ITS | Encounter Summary ---
Author Organization [facility] Address [address] [facility] [address] [place] [address] Phone Care Team Providers Care Topography Technician Name Role Phone Hiro Aquino MD Primary Care Provider [phone] Hiro Aquino MD Unavailable [phone] Hiro Aquino MD Unavailable [phone] Eagle Perez MD Unavailable [phone] Edmar Simms MD Unavailable [phone] Encounter Details Date Type Department Care Team (Latest Contact Info) Description 04/30/2023 Transcribe Orders [facility] [address] [place] [address] Angel Pinto MD [address] [place], [place] [id number] Essential hypertension (Primary Dx); Mixed hyperlipidemia Social History Tobacco Use Types Packs/Day Years [...] high school, GED, job training, learning the Turkish language, technical skills, or developing parenting skills)? [...] 05/29/2025 1:00 PM EST Office Visit [facility] [place] [facility] Internal Medicine [address] [place] [address] Hiro Aquino MD [address] [place] [address] [email or web address] documented as of this encounter Procedures Procedure Name Priority Date/Time Associated Diagnosis Comments TSH WITH REFLEX Routine 04/30/2023 3:15 PM EST Mixed hyperlipidemia MRSA NASAL SCREEN Routine 04/30/2023 3:1 5 PM EST Essential hypertension URINALYSIS Routine 04/30/2023 3:15 PM EST Essential hypertension CBC Routine 04/30/2023 3:15 PM EST Essential hypertension BASIC METABOLIC PANEL Routine 04/30/2023 3:15 PM EST Essential hypertension documented in this encounter Results * TSH with reflex (04/30/2023 3:15 PM EST) TSH 1.67 0.27 - 4.20 uIU/mL [facility] Blood 04/30/2023 3:15 PM EST 04/30/2023 3:18 PM EST us Hiro Aquino MD LAB BLOOD ORDERABLES Final Re sult [address] [address] * (ABNORMAL) CBC (04/30/2023 3:15 PM EST) WBC 6.87 4.00 - 11.00 K/uL [facility] RBC 4.08 3.72 - 5.30 M/uL [facility] HGB 12.8 11.4 - 15.9 g/dL [facility] HCT 40.3 34.2 - 46.8 % [facility] PLT 278 140 - 430 K/uL [facility] MCV 98.8(H) 78.0 - 97.0 fL [facility] MCH 31.4 25.0 - 33.0 pg [facility] MCHC 31.8(L) 32.0 - 36.0 g/dL [facility] RDW 11.9 11.0 - 16.0 % [facility] MPV 10.8 8.4 - 12.8 fl [facility] Blood 04/30/2023 3:15 PM EST 04/30/2023 3:18 PM EST Angel Pinto MD LAB BLOOD ORDERABLES Final Re sult Performing Organization Address City/[facility]/ZIP Co de Phone Number [address] [address] * (ABNORMAL) Basic metabolic panel (04/30/2023 3:15 PM EST) SODIUM 140 133 - 146 mmol/L [facility] CHLORIDE 104 96 - 108 mmol/L [facility] POTASSIUM 4.7 3.3 - 5.1 mmol/L [facility] CO2 25 21 - 35 mmol/L [facility] BUN 13 6 - 19 mg/dL [facility] CREATININE 0.70 0.5 - 1.5 mg/dL [facility] GLUCOSE 112(H) 70 - 99 mg/dL [facility] CALCIUM 10.1 8.4 - 10.3 mg/dL [facility] EGFR 97 >59 mL/min/1.7 3m2 [facility] Comment:Estimated glomerular filtration rate calculated using the CKD-EPI refit equation. ANION GAP 16 10 - 20 mmol/L [facility] Blood 04/30/2023 3:15 PM EST 04/30/2023 3:18 PM EST us Angel Pinto MD LAB BLOOD ORDERABLES Final Re sult [address] [address] * (ABNORMAL) Urinalysis (04/30/2023 3:15 PM EST) COLOR STRAW(A) Yellow [facility] CLARITY Clear [facility] GLUCOSE Negative Negative [facility] BILI Negative Negative [facility] KETONES Negative Negative [facility] SPECIFIC GRAVITY 1.010 1.005 - 1.030 [facility] BLOOD Negative Negative [facility] PH 6.5 5.0 - 8.0 [facility] Protein-UA Negative Negative [facility] NITRITE Negative Negative [facility] Leukocyte esterase, ur Negative Negative [facility] Urine (Urine) 04/30/2023 3:1 5 PM EST 04/30/2023 3:18 PM EST Angel Pinto MD URINE ORDERABLES Final Result Performing Organization Address [facility] Co de Phone Number [address] [address] * MRSA nasal screen (04/30/2023 3:15 PM EST) Special Requests None 04/30/2023 3:15 PM EST [facility] MRSA Nasal Culture No MRSA or MSSA isolated 05/01/2023 10:20 AM EST [facility] Other (Nasal) 04/30/2023 3:1 5 PM EST 04/30/2023 3:17 PM EST Angel Pinto MD MICROBIOLOGY - GENERAL ORDERA BLES Final Result Performing Organization Address [facility] de Phone Number [address] [address] documented in this encounter Visit Diagnoses Diagnosis Essential hypertension- Primary Unspecified essential hypertension Mixed hyperlipidemia documented in this encounter Additional Health Concerns Assessment Noted Time PHQ-2 Depression Total Score: 0 10/21/19 23 2:39 PM EDT documented as of this encounter Care Teams Topography Technician Relationship Specialty Start Date End Date Hiro Aquino MD [address] [place] [address] [email or web address] PCP - General 03/22/17 Hiro Aquino MD [address] [place] [address] [email or web address] Historical LMR Provider 03/24/17 Hiro Aquino MD [address] [place] [address] [email or web address] Insurance Assigned Provider 09/08/23 03/14/25 Eagle Perez MD [address] [place] [address] Gastroenterology 02/20/20 Edmar Simms MD [address] [place] [address] [email or web address] Hand Surgery 02/20/20 documented as of this encounter Additional Source Comments The information contained in this document represents components of the legal health record. It is not the complete legal health record.[facility]
--- OUTSIDE RECORDS SUMMARY | 2025-03-30 16:20 | XMS_ITS | Encounter Summary ---
Author Organization [facility] Address [address] [facility] [address] [place] [address] Phone Care Team Providers Care Bead Picker Name Role Phone Hiro Aquino MD Primary Care Provider [phone] Hiro Aquino MD Unavailable [phone] Hiro Aquino MD Unavailable [phone] Eagle Perez MD Unavailable [phone] Edmar Simms MD Unavailable [phone] Reason for Referral * Consultation (Within 2 weeks) - Closed Specialty Diagnoses / Procedures Referred By Adrien matamoros Referred To Contact Diagnoses Bilateral Ptosis Hiro Aquino MD Phone: tel: fax: [email or web address] Yamil Reyes MD [address] [facility] [address] [address] [place] [address] Phone: tel: fax: Referral ID Status Reason Start Date Expiration Date Visits Re quested Visits Authorized [id number] Closed 06/23/2022 06/23/2023 6 6 Encounter Details Date Type Department Care Team (Late st Contact Info) Description 06/08/2022 Transcribe Orders [facility] Internal Medicine [address] [place] [address] Hiro Aquino MD [address] [facility] [place] [address] Social History Tobacco Use Types Packs/Day Years [...] work, study, or receive health care? No 06/07/2022 Education Answer Date Recorded Are you interested in help w ith more adult education (for example, completing high school, GED, job training, learning the Ethiopian language, technical skills, or developing parenting skills)? No 06/07/2022 Food Answer Date Recorded Within the past 6 months we worried whether our food would run out before we got money to buy more. Never True 06/07/2022 Within the past 6 months the food we bought just didn't last and we didn't have enough money to get more. Never True Paying for Meds Answer Date Recorded Do you have trouble paying for medicines? No 06/07/2022 Paying Utility Bills Answer Date Record ed Do you have trouble paying y our heating or electricity bill? I choose not to answer 06/07/2022 Transportation Answer Date Recorded Has the lack of transportati on kept you from medical appointments or from getting medications? No 06/07/2022 Unemployment Answer Date Recorded Are you currently unemployed or working on a part-time or temporary basis, and looking for work? I choose not to answer 06/07/2022 Comments No Sex and Gender Information Value Date Recorded Sex Assigned at Not on file Legal Sex Female 10:34 PM EDT Gender Identity Not on file Sexual Orientation Not on file documented as of this encounter Plan of Treatment Upcoming Encounters Date Type Department Care Team (Late st Contact Info) Description 05/29/2025 1:00 PM EST Office Visit [facility] Internal Medicine [address] [place] [address] Hiro Aquino MD [address] [place] [address] [email or web address] Scheduled Referrals Name Type Priority Associated Diagnoses Order Schedule Ambulatory referral to External Plastic Surgery Outpatient Referral Routine Ordered: 06/08/2022 documented as of this encounter Visit Diagnoses Not on filedocumented in this encounter Additional Health Concerns Assessment Noted Time PHQ-2 Depression Total Score: 2 06/07/19 23 5:47 PM EST documented as of this encounter Care Teams Bead Picker Relationship Specialty Start Date End Date Hiro Aquino MD [address] [place] [address] [email or web address] PCP - General 03/22/17 Hiro Aquino MD [address] [place] [address] Historical LMR Provider 03/24/17 Hiro Aquino MD [address] [place] [address] Insurance Assigned Provider 09/08/23 03/14/25 Eagle Perez MD [address] [place] [address] Gastroenterology 02/20/20 Edmar Simms MD [address] [place] [address] [email or web address] 02/20/20 documented as of this encounter Additional Source Comments The information contained in this document represents components of the legal health record. It is not the complete legal health record.[facility]
--- OUTSIDE RECORDS SUMMARY | 2025-03-30 16:20 | XMS_ITS | Clinical Summary ---
Author Organization [facility] Address [address] [facility] [address] [place] [phone] Phone Care Team Providers Care Director Of Web Marketing Name Role Phone Hiro Aquino MD Primary Care Provider [phone] Hiro Aquino MD Unavailable [phone] Eagle Perez MD Unavailable [phone] Edmar Simms MD Unavailable [phone] Allergies No known active allergies Medications BOTOX 100 unit SolR Every 4 months 019 Active biotin 1 mg Cap Take 1 capsule by mouth daily. Active milk thistle 150 mg Cap daily. Active multivitamin with minerals (MULTIPLE VITAMIN-MINERALS ORAL) Take 1 capsule by mouth daily. Active budesonide (RHINOCORT AQUA) 32 mcg/actuation nasal sprayIndications: Seasonal allergic rhinitis, unspecified trigger 1 spray by Nasal route daily. 8.43 mL 2 023 Active Additional Information Patient taking differently:1 spray NasalAs needed, Reported on 05/05/2024 aspirin 81 MG EC tablet TAKE ONE TABLET BY MOUTH TWICE A DAY FOR 30 DAYS. 023 Active valsartan (DIOVAN) 160 MG tabletIndications :Essential hypertension Take 1 tablet (160 mg total) by mouth every morning. 90 tablet 3 024 Active amoxicillin (AMOXIL) 500 MG capsule Take 4 capsules by mouth 1 hour prior to dental procedures Active atorvastatin (LIPITOR) 20 MG tabletIndications :Mixed hyperlipidemia TAKE 1 TABLET BY MOUTH EVERY DAY 90 tablet 3 025 Active azithromycin (ZITHROMAX) 250 MG tablet Take 2 tablets (500mg) by mouth today. Then take 1 tablet (250mg) a day for an additional 4 days. 6 tablet 025 Active LORazepam (ATIVAN) 1 MG tabletIndications :Anxiety Take 1 tablet (1 mg total) by mouth nightly at bedtime as needed for anxiety. 30 tablet 025 Active amLODIPine (NORVASC) 5 MG tabletIndications :Essential hypertension TAKE 1 TABLET BY MOUTH EVERY DAY 90 tablet 3 025 Active amLODIPine (NORVASC) 5 MG tabletIndications :Essential hypertension TAKE 1 TABLET BY MOUTH EVERY DAY 90 tablet 1 025 2024 Discontinued LORazepam (ATIVAN) 1 MG tabletIndications :Anxiety Take 1 tablet (1 mg total) by mouth nightly at bedtime as needed for anxiety. 30 tablet 025 2024 Discontinued(R donya) Active Problems Problem Noted Date Diagnosed Date Chronic left SI joint pain 11/06/2023 Adenomatous polyp of colon 06/12/2021 Mixed hyperlipidemia 05/21/2020 Hypertension 03/26/2020 Osteopenia of multiple sites 04/02/2017 Optic neuritis Dupuytren's contracture Glaucoma Encounters Date Type Department Care Team Description 03/14/2025 Refill [facility] Internal Medicine [address] [place] [address] Hiro Aquino MD Medication Refill 03/12/2025 Refill [facility] Internal Medicine [address] [place] [address] Hiro Aquino MD Medication Refill 02/20/2025 11:40 AM EDT Telemedicine [facility] [address] [place] [address] Bethany Slade PA-C Chronic frontal sinusitis (Primary Dx) 02/10/2025 Telephone [facility] Internal Medicine [address] [place] [address] Lidia Barakat RN Medication Refill 02/10/2025 Refill [facility] Internal Medicine [address] [place] [address] Hiro Aquino MD Medication Refill 02/10/2025 Refill [facility] Internal Medicine [address] [facility] [place] [address] Hiro Aquino MD Medication Refill 01/12/2025 11:40 AM EDT Telemedicine [facility] [address] [place] [address] Madelyn Hopkins, CLAUDIO Chronic frontal sinusitis (Primary Dx) 01/08/2025 Refill [facility] Internal Medicine [address] [facility] [place] [address] Hiro Aquino MD Medication Refill from Last 3 Months Immunizations Immunization Administration Dates Next Due COVID-19 (Pre-03/26) Pfizer Vaccine, mRNA, PF 09/26/2020,08/27/2020 INFLUENZA, SPLIT VIRUS, TRIVALENT PF 03/04/2024, 05/19/2016 INFLUENZA, SPLIT VIRUS, TRIV ALENT W/ PRESERVATIVE IM 03/17/2020,03/23/2014 Influenza Quadrivalent MDCK Preservative Free IM 03/01/2023,04/05/2018 Influenza Quadrivalent Prese rvative Free IM 03/28/2022,06/07/2021,02/20/2020,2016,03/16/2015 Influenza, Unspecified Formulation 04/05/2018 Td (adult) 5 Lf Tetanus Toxo id, PF, Adsorbed 05/05/2005 Td, unspecified formulation 05/05/2005 Tdap 09/02/2013 Zoster recombinant 05/21/2020 Family History Medical History Relation Comments Heart disease Brother Hyperlipidemia Brother Heart disease Father Hyperlipidemia Father Lung cancer Father Hyperlipidemia Mother Melanoma Mother Hyperlipidemia Sister Relation Status Comments Brother Father (Age 58) Mother (Age 82) CVA Sister Social History Tobacco Use Types Packs/Day Years Used Date Smoking Tobacco: Former Cigarettes 1 40 1 977 - 2016 Smokeless Tobacco: Never Tobacco Cessation:Counseling Given: Not Answered Alcohol Use Standard Drinks/Week Comments Yes 10 [...] high school, GED, job training, learning the [place] language, technical skills, or developing parenting skills)? [...] on file Sexual Orientation Not on file Last Filed Vital Signs Vital Sign Reading Time Taken Comments Blood Pressure 146/76 05/05/2024 3:39 PM EST Pulse 90 05/05/2024 3:39 PM EST Temperature 36.2 C (97.1 F) 05/05/2024 3:39 PM EST Respiratory Rate 20 05/05/2024 3:39 PM EST Oxygen Saturation 98% 05/05/2024 3:39 PM EST Inhaled Oxygen Concentration - - Weight 65.3 kg (144 lb) 05/05/2024 3:39 PM EST Height 162.2 cm (5' 3.86 ) 05/05/2024 3:39 PM ES T Body Mass Index 24.83 05/05/2024 3:39 PM EST Plan of Treatment Upcoming Encounters Date Type Department Care Team (Late st Contact Info) Description 05/29/2025 1:00 PM EST Office Visit [facility] [place] Internal Medicine [address] [place] [address] Hiro Aquino MD [address] [place] [address] [email or web address] Health Maintenance Due Date Last Done Comments HIV ONE-TIME SCREENING (18-65 YEARS) 12/31/1977 COLOGUARD 12/31/2004 FIT TEST 12/31/2004 FOBT 12/31/2004 SIGMOIDOSCOPY 12/31/2004 VIRTUAL COLONOSCOPY 12/31/2004 PNEUMOCOCCAL VACCINES (50+ years) (1 of 1 - PCV) 12/31/2009 ZOSTER VACCINES (2 of 2) 07/16/2020 05/21/2020 Adult Td,Tdap Booster 09/03/2023 09/02/2013 , 05/05/2005, 05/05/2005 BLOOD PRESSURE 11/03/2024 05/05/2024 OSTEOPOROSIS SCREENING INITIAL (ONE-TIME) 12/31/2024 05/16/2017 INFLUENZA VACCINE (#1) 2025 , 03/01/2023, 03/28/2022, Additional history exists COVID-19 VACCINE ( season) 2025 03/04/2024, 03/01/2023, 06/09/2022, Additional history exists CREATININE LEVEL 05/23/2025 05/23/2024, 12/2023, 04/30/2023, Additional history exists LUNG CANCER SCREENING (LDCT Only) 05/23/2025 05/23/2024, 02/21/2023, 11/25/2021 POTASSIUM LEVEL 05/23/2025 05/23/2024, 06/0 12/2023, 04/30/2023, Additional history exists COLONOSCOPY 02/14/2026 02/14/2021, 04/13/2014 COLORECTAL CANCER SCREENING 02/14/2026 DEPRESSION SCREENING 02/20/2026 02/20/2025 MAMMOGRAM 03/10/2026 03/10/2024, 100 12/2023, 02/14/2023, Additional history exists LIPID PANEL 05/23/2029 05/23/2024, 060 12/2023, 05/24/2022, Additional history exists RSV VACCINE (1 - 1-dose 75+ series) 12/31/2034 HEPATITIS C SCREENING Completed 02/17/2014 HEPATITIS A VACCINES Aged Out No long er eligible based on patient's age to complete this topic HIB VACCINES Aged Out No longer eligi ble based on patient's age to complete this topic MENINGOCOCCAL VACCINES (ACWY) Aged Out No longer eligible based on patient's age to complete this topic MENINGOCOCCAL VACCINES (B) Aged Out N o longer eligible based on patient's age to complete this topic Medical Devices Not on file Procedures Procedure Name Priority Date/Time Associated Diagnosis Comments LIPID PANEL Routine 05/23/2024 9:26 AM EST Mixed hyperlipidemia COMPREHENSIVE METABOLIC PANEL Routine 05/23/2024 9:26 AM EST Primary hypertension Mixed hyperlipidemia CT CHEST LUNG CANCER SCREENING ANNUAL Routine 05/23/2024 8:45 AM EST Former smoker HM MAMMOGRAPHY Routine 03/10/2024 2:12 PM EDT COLONOSCOPY FOR RESULT ENTRY ONLY Routine 02/14/2021 BD DXA AXIAL (SPINE) WITH HIP Routine 05/16/2017 9:29 AM EST Osteopenia of multiple sites OUTSIDE HEPATITIS C VIRUS SCREENING Routine 02/17/2014 from Last 3 Months or Most Recently Relevant to Health Maintenance Results * Comprehensive metabolic panel (05/23/2024 9:26 AM EST) SODIUM 137 133 - 146 mmol/L [facility] POTASSIUM 4.7 3.3 - 5.1 mmol/L [facility] CHLORIDE 101 96 - 108 mmol/L [facility] CO2 25 21 - 35 mmol/L [facility] BUN 11 6 - 19 mg/dL [facility] CREATININE 0.50 0.5 - 1.5 mg/dL [facility] GLUCOSE 84 70 - 99 mg/dL [facility] ALBUMIN 4.6 3.9 - 4.8 g/dL [facility] TOTAL PROTEIN 7.3 6.5 - 8.0 g/dL [facility] CALCIUM 9.7 8.4 - 10.3 mg/dL [facility] ALKALINE PHOSPHATASE 92 39 - 117 U/L [facility] TOTAL BILIRUBIN 0.5 0.0 - 1.2 mg/dL [facility] AST 25 0 - 37 U/L [facility] ALT 27 0 - 40 U/L [facility] GLOBULIN 2.7 1 - 4.8 g/dL [facility] EGFR 105 >59 mL/min/1.7 3m2 [facility] Comment:Estimated glomerular filtration rate calculated using the CKD-EPI refit equation. ANION GAP 16 10 - 20 mmol/L [facility] Blood 05/23/2024 9:26 AM EST 05/23/2024 9:33 AM EST us Hiro Aquino MD LAB BLOOD ORDERABLES Final Re sult [address] [address] * (ABNORMAL) Lipid panel (05/23/2024 9:26 AM EST) HDL 96 mg/dL [facility] Comment: Interpretation <40 mg/dL: Low HDL cholesterol (major risk factor for CHD) Greater than or equal to 60 mg/dL: High HDL cholesterol ( negative risk factor for CHD) HDL - cholesterol is affected by a number of factors, e.g. smoking, excerise, hormones, sex and age. CHOLESTEROL 229 0 - 240 mg/dL [facility] TRIGLYCERIDES 230(H) 30 - 160 mg/dL [facility] LDL 87 50 - 129 mg/dL [facility] Comment: LDL levels in terms of risk for coronary heart disease: <100 mg/dL: Optimal 100-129 mg/dL: Near or above optimal 130-159 mg/dL: Borderline high 160-189 mg/dL: High >190 mg/dL: Very High CARDIAC RISK RATIO 2.4(L) 3.3 - 4.4 C [facility] Blood 05/23/2024 9:26 AM EST 05/23/2024 9:33 AM EST us Hiro Aquino MD LAB BLOOD ORDERABLES Final Re sult [facility] [address] [place] [address] * CT CHEST LUNG CANCER SCREENING ANNUAL (05/23/2024 8:45 AM EST) Anatomical Region Laterality Modality Chest Computed Tomogra phy 05/27/2024 10:0 5 AM EST Impressions 05/27/2024 10:08 AM EST Lung-RADS Category: 2. Multiple pulmonary nodules. The category-determining solid nodule has a very low likelihood of becoming a clinically active cancer, due to size and/or lack of growth. RECOMMENDATIONS: Continue annual Lung Cancer Screening Chest CT examination if patient meets eligibility criteria. To order, please type CT CHEST SCREENING (CT.TH.CHESTSCR) and select ANNUAL for patient program status. Explanation of the Lung-RADS categories can be found at: [email or web address] Narrative 05/27/2024 10:[address] CHEST LUNG CANCER SCREENING ANNUAL TECHNIQUE: Low dose multidetector CT of the chest was performed without intravenous contrast using tailored dose modulation techniques. COMPARISON: 02/21/2023 FINDINGS: Devices/Tubes/Lines: None. Lungs: No new nodules. Unchanged 3 mm nodule left lower lobe (5:190,141) Pleura: Normal. No pleural effusion or pneumothorax. Mediastinum: Mild coronary and aortic vascular calcifications. Lymph Nodes: No enlarged supraclavicular, axillary, mediastinal, or hilar lymph nodes. Upper Abdomen: Absence of intravenous contrast and low dose technique limits sensitivity for detecting small lesions, solid organ and vascular findings. No abnormality detected in the visualized upper abdomen. Bones: No suspicious lytic or blastic lesions. Procedure Note Lukas Christy MD, ELIA - 05/27/2024 CT CHEST LUNG CANCER SCREENING ANNUAL TECHNIQUE: Low dose multidetector CT of the chest was performed withoutintravenous contrast using tailored dose modulation techniques. COMPARISON: 02/21/2023 FINDINGS: Devices/Tubes/Lines: None. Lungs: No new nodules. Unchanged 3 mm nodule left lower lobe (5:190,141) Pleura: Normal. No pleural effusion or pneumothorax. Mediastinum: Mild coronary and aortic vascular calcifications. Lymph Nodes: No enlarged supraclavicular, axillary, mediastinal, or hilarlymph nodes. Upper Abdomen: Absence of intravenous contrast and low dose techniquelimits sensitivity for detecting small lesions, solid organ and vascularfindings. No abnormality detected in the visualized upper abdomen. Bones: No suspicious lytic or blastic lesions. IMPRESSION: Lung-RADS Category: 2. Multiple pulmonary nodules. Thecategory-determining solid nodule has a very low likelihood of becoming aclinically active cancer, due to size and/or lack of growth. RECOMMENDATIONS: Continue annual Lung Cancer Screening Chest CT examination if patientmeets eligibility criteria. To order, please type CT CHEST SCREENING (CT.TH.CHESTSCR) and selectANNUAL for patient program status. Explanation of the Lung-RADS categories can be found at:[email or web address] Hiro Aquino MD IMG CT CHEST Final Result * HM MAMMOGRAPHY FOR RESULT ENTRY ONLY (03/10/2024 2:12 PM EDT) Historical Provider HEALTH MAINTENANCE Final Result * HM COLONOSCOPY FOR RESULT ENTRY ONLY (02/14/2021) Historical Provider HEALTH MAINTENANCE Edited Result - Final * BD DXA AXIAL (SPINE) WITH HIP (05/16/2017 9:29 AM EST) Anatomical Region Laterality Modality Bone Density Bone Density 05/16/2017 9:55 AM EST Addenda Addendum by Natan Peraza MD on 06/27/2017 5:04 PM EST This is a 57-year-old postmenopausal white female who is not on >>ESTROGEN<< replacement therapy and does not take calcium supplements. She describes a maternal history of osteoporosis and a perceived height loss of approximately 1 inch. Evaluation of the lumbar spine and hips was performed and felt to be technically adequate. Total bone mineral density in the L1-L4 vertebral bodies was calculated at 1.182 gm/cm2 with a T-score of 1.2 and Z-score of 2.5, falling within the WHO classification of normal. Total bone mineral density in the right hip was calculated at 0.852 gm/cm2 with a T-score of -0.7 and Z-score of 0.1 falling within the WHO classification of normal. Total bone mineral density in the left hip was calculated at 0.860 gm/cm2 with a T-score of -0.7 and Z-score of 0.1 falling within the WHO classification of normal. IMPRESSION: Normal bone mineral density. Edited by: Keesha Phillips on 06/27/2017 12:32 PM Impressions 05/16/2017 9:56 AM EST Normal bone mineral density. POS - [id number] Narrative 05/16/2017 9:56 AM EST This is a 57-year-old postmenopausal white female who is not on aspirin replacement therapy and does not take calcium supplements. She describes a maternal history of osteoporosis and a perceived height loss of approximately 1 inch. Evaluation of the lumbar spine and hips was performed and felt to be technically adequate. Total bone mineral density in the L1-L4 vertebral bodies was calculated at 1.182 gm/cm2 with a T-score of 1.2 and Z-score of 2.5, falling within the WHO classification of normal. Total bone mineral density in the right hip was calculated at 0.852 gm/cm2 with a T-score of -0.7 and Z-score of 0.1 falling within the WHO classification of normal. Total bone mineral density in the left hip was calculated at 0.860 gm/cm2 with a T-score of -0.7 and Z-score of 0.1 falling within the WHO classification of normal. Procedure Note Natan Peraza MD - 05/16/2017 This is a 57-year-old postmenopausal white female who is not on aspirinreplacement therapy and does not take calcium supplements. She describesa maternal history of osteoporosis and a perceived height loss ofapproximately 1 inch. Evaluation of the lumbar spine and hips was performed and felt to betechnically adequate. Total bone mineral density in the L1-L4 vertebral bodies was calculated at1.182 gm/cm2 with a T-score of 1.2 and Z-score of 2.5, falling within theWHO classification of normal. Total bone mineral density in the right hip was calculated at 0.852 gm/uz9dpvw a T-score of -0.7 and Z-score of 0.1 falling within the WHOclassification of normal. Total bone mineral density in the left hip wascalculated at 0.860 gm/cm2 with a T-score of -0.7 and Z-score of 0.1falling within the WHO classification of normal. IMPRESSION: Normal bone mineral density. POS - [id number] Hiro VILLARREAL BD BONE DENSITY DEXA Edit ed Result - Final * Outside Hepatitis C Virus Screening (02/17/2014) Hepatitis C Screening - External Neg us Historical Provider LAB BLOOD ORDERABLES Guerita cortes Result from Last 3 Months or Most Recently Relevant to Health Maintenance Insurance [employer] MED[employer] SUPPLEMENT MEDICARE PART A & B [employer] MEDEX SUPPLEMENT MEDICARE PART A & B [employer] MEDEX SUPPLEMENT [employer] MEDEX SUPPLEMENT [employer] MEDEX SUPPLEMENT MEDICARE PART A & B [employer] MEDEX SUPPLEMENT [employer] MEDEX SUPPLEMENT MEDICARE PART A & B MEDEX SUPPLEMENT MEDICARE PART A & B [employer] MEDEX SUPPLEMENT MEDICARE PART A & B Care Teams Director Of Web Marketing Relationship Specialty Start Date End Date Hiro Aquino MD [address] [place] [address] PCP - General 03/22/17 Hiro Aquino MD [address] [place] [address] [email or web address] Historical LMR Provider 03/24/17 Eagle Perez MD [address] [place] [address] Gastroenterology 02/20/20 Edmar Simms MD [address] [place] [address] [email or web address] 02/20/20 Additional Source Comments The information contained in this document represents components of the legal health record. It is not the complete legal health record.[facility]
--- OUTSIDE RECORDS SUMMARY | 2025-03-30 16:21 | XMS_ITS | Patient Health Record ---
Author Organization [facility] Address [address] [place] [address] Care Team Providers Care Community Specialist Name Role Phone Hiro Aquino MD Primary Care Provider Unavaila ble Katie Kramer Unavailable [phone] Allergies No Known Allergies Results Component Value Reference Range Notes X ray : Foot, left 3V Reviewed date:05/08/2024 12:37:33 PM Interpretation:See Examination above Performing Lab: Notes/Report: See Examination above X ray : Foot, right 3V Reviewed date:05/08/2024 12:37:44 PM Interpretation:See Examination above Performing Lab: Notes/Report: See Examination above Reason For Referral Diagnosis 1 Other specified soft tissue disorders (M79.89) Referring Provider First Name Hiro Referring Provider Last Name Miles Referred Organization [facility] Referred Provider Katie Kramer Referred Address [address] [facility],[place],[address], Referred Provider Specialty Podiatry Referral Priority Routine Medications Medication SIG (Take, Route, Frequency, Duration) Notes Start Date End Date Status Urea Nail 45 % 1 application as nee ded Externally Once a day 05/08/2024 Active LORazepam 1 MG 1 tablet at bedtime as needed Orally Once a day Active Atorvastatin Calcium 20 MG 1 tablet Oral ly Once a day Active Valsartan 160 MG 1 tablet Orally Once a day Active amLODIPine Besylate 5 MG 1 tablet Orally Once a day Active Social History Tobacco Use: Social History Observation Description Date Details (start date - stop date) Never Smoker NA - NA Alcohol Screen Question Answer Notes Did you have a drink containing alcohol in the p ast year? Yes Points 0 Interpretation Negative Tobacco use other than smoking: Question Answer Notes Are you an other tobacco user? No Tobacco Control (Standard) Question Answer Notes Tobacco use: Nonsmoker Problems Problem Type SNOMED Code ICD Code Onset Dates Problem Status W/U Status Risk Notes Problem Acquired hammer toe of left foot (6780942210414329) Other hammer toe(s) (acquired), left foot (M20.42) Active confirmed Problem Localized, primary osteoarthritis of the ankle and/or foot (196241432) Arthritis of joint of lesser toe, left (M19.072) Active confirmed Vital Signs Blood pressure diastolic 80 mm Hg 11/06/2024 Height 5ft4in in 11/06/2024 Blood pressure systolic 125 mm Hg 11/06/2024 Weight 140 lbs 11/06/2024 BMI 24.03 kg/m2 11/06/2024 Encounters Encounter Location Date Provider Diagnosis [facility] [address] 05/08/2024 Katie Black Pain in left toe(s) M79.675 ; Other hammer toe(s) (acquired), left foot M20.42 ; Arthritis of joint of lesser toe, left M19.072 ; Pain in right toe(s) M79.674 ; Onychomycosis B35.1 ; Pain in left foot M79.672 ; Bursitis of intermetatarsal bursa of left foot M77.52 ; Metatarsalgia of left foot M77.42 ; Pain in right foot M79.671 ; Bursitis of intermetatarsal bursa of right foot M77.51 ; Metatarsalgia, right foot M77.41 and Closed nondisplaced fracture of middle phalanx of lesser toe of left foot, initial encounter S92.525A [facility] [address] [address] 11/06/2024 Katie Black Pain in left toe(s) M79.675 ; Metatarsalgia, right foot M77.41 ; Other hammer toe(s) (acquired), left foot M20.42 ; Arthritis of joint of lesser toe, left M19.072 ; Pain in right toe(s) M79.674 ; Onychomycosis B35.1 ; Pain in left foot M79.672 ; Bursitis of intermetatarsal bursa of left foot M77.52 ; Metatarsalgia of left foot M77.42 ; Pain in right foot M79.671 and Bursitis of intermetatarsal bursa of right foot M77.51 [facility] [address] [address] 05/08/2024 Katie Kramer [facility] [address] [address] 11/06/2024 Katie Kramer Assessments Encounter Date Diagnosis (ICD Code) Assessment Notes Treatment Notes Treatment Clinical Notes Section Notes 05/08/2024 Pain in left toe(s) (ICD-10 - M79.675) 05/08/2024 Other hammer toe(s) (acquired), left foot (ICD-10 - M20.42) 11/06/2024 Metatarsalgia, right foot (ICD-10 - M77.41) 11/06/2024 Pain in left toe(s) (ICD-10 - M79.675) 05/08/2024 Arthritis of joint of lesser toe, left (ICD-10 - M19.072) 11/06/2024 Other hammer toe(s) (acquired), left foot (ICD-10 - M20.42) 11/06/2024 Arthritis of joint of lesser toe, left (ICD-10 - M19.072) 05/08/2024 Pain in right toe(s) (ICD-10 - M79.674) 05/08/2024 Onychomycosis (ICD-10 - B35.1) Patient Educated with: FUNGUS NAIL INFECTIONS.pd f (FUNGUS NAIL INFECTIONS.pd f) 11/06/2024 Pain in right toe(s) (ICD-10 - M79.674) 05/08/2024 Pain in left foot (ICD-10 - M79.672) 11/06/2024 Onychomycosis (ICD-10 - B35.1) 11/06/2024 Pain in left foot (ICD-10 - M79.672) 05/08/2024 Bursitis of intermetatarsal bursa of left foot (ICD-10 - M77.52) 05/08/2024 Metatarsalgia of left foot (ICD-10 - M77.42) 11/06/2024 Bursitis of intermetatarsal bursa of left foot (ICD-10 - M77.52) 11/06/2024 Metatarsalgia of left foot (ICD-10 - M77.42) 05/08/2024 Pain in right foot (ICD-10 - M79.671) 05/08/2024 Bursitis of intermetatarsal bursa of right foot (ICD-10 - M77.51) 11/06/2024 Pain in right foot (ICD-10 - M79.671) 05/08/2024 Metatarsalgia, right foot (ICD-10 - M77.41) 11/06/2024 Bursitis of intermetatarsal bursa of right foot (ICD-10 - M77.51) 05/08/2024 Closed nondisplaced fracture of middle phalanx of lesser toe of left foot, initial encounter (ICD-10 - S92.525A) Plan Of Treatment No Information Insurance Providers Payer Name Payer Address Payer Phone Subscriber Number Group Number Insured Name Patient Relationship to Insured Coverage Start Date Coverage End Date [facility] [address] [place] [address] [phone] [id number] Yelena Ramirez Self - patient is the insured Medical (General) History Medical History History ICD Code Diverticulitis Glaucoma High Blood Pressure Chicken pox Bone implants/screws Surgical History Surgery Date(Month/Year) 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
--- OUTSIDE RECORDS SUMMARY | 2025-03-30 16:21 | XMS_ITS | Patient Health Record ---
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 Name Role Phone Hiro Aquino MD Primary Care Provider Eagle Prado Unavailable [phone] Reason For Referral No Information Medications Medication SIG (Take, Route, Frequency, Duration) Notes Start Date End Date Status Milk Thistle Active Probiotic Active Calcium Active Fish Oil Active LORazepam 1 MG TAKE ONE TABLET BY M OUTH AT BEDTIME NEEDED Oral; Duration: 30 Active Botox 100 UNIT Injection; Duration: 90 Active amLODIPine Besylate 5 MG Oral; Duration: 60 Active Valsartan 80 MG Oral; Duration: 30 Active Multi Vitamin/Minerals Orally Active Biotin Active Immunizations Vaccine Route Administration Date Status Comme nts Influenza Unknown 03/17/2020 Administered Problems Problem Type SNOMED Code ICD Code Onset Dates Problem Status W/U Status Risk Notes Problem Screening for malignant neoplasm of colon (996732307) Encounter for screening for malignant neoplasm of colon (Z12.11) Active confirmed Problem History of adenomatous polyp of colon (725996330) History of adenomatous polyp of colon (Z86.010) Active confirmed Problem Family history of polyp of colon (804050213) Family history of colonic polyps (Z83.71) Active confirmed Problem Elevated liver enzymes level (276741073) Elevated liver function tests (R79.89) Active confirmed Problem Constipation (12111288) Constipation, unspecified constipation type (K59.00) Active confirmed Problem Hemangioma of intra-abdominal structure (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) Liver hemangioma (D18.03) Active confirmed Problem Diverticular disease of colon (406899666) Colon, diverticulosis (K57.30) Active confirmed Plan Of Treatment Pending Test Test Name Order Date MRI ABD W&WO CONTRAST 02/26/2015 Pathology 02/14/2021 Future Test Test Name Order Date COLONOSCOPY 02/06/2014 COLONOSCOPY 11/18/2020 Insurance Providers Payer Name Payer Address Payer Phone Subscriber Number Group Number Insured Name Patient Relationship to Insured Coverage Start Date Coverage End Date [facility] [place] [employer] [address] [place] [address] [id number] Self - patient is the insured Medical (General) History Medical History History ICD Code Colonoscopy--nega tive except for hyperplastic polyps, sigmoid diverticulosis, and small internal hemorrhoids Denies [place],DM,CVA,Lung disease,renal dise ase hypertension anxiety glaucoma Colonoscopy in 2013 with a removal of a small tubular adenoma Surgical History Surgery Date(Month/Year) Fractured Left Shoulder Scheduled for bilateral Dupu ytrenne's surgery in 01/2021 and Fall 2020
== END 2025-03-30 12:53 | disposition home or self-care (01) ==
LOC: HO.MAMMO 12:52
PROVIDERS: PCP Internal Medicine; Visit Provider Internal Medicine
DX: Z12.31 Encounter for screening mammogram for malignant neoplasm of breast (principal)
CPT/HCPCS: 77063; 77067

== ENCOUNTER → 2025-03-30 13:00 | Outpatient (BNV) | payer MEDICARE, SELFPAY | PROVIDERS: PCP Internal Medicine; Visit Provider Internal Medicine | DX: Z12.31 Encounter for screening mammogram for malignant neoplasm of breast (principal) | CPT/HCPCS: 77063; 77067 ==